=== PATIENT | female | born 1960 | race Caucasian/White ===

== ENCOUNTER → 2022-03-10 | Outpatient (CLI) | payer OTHER ==
[~2022-03-10] MED LIST: ALBU8.5H; AMLO1TAB24; AMOX500T2; ATOR1TAB21; B-1100TA2; BASA100I; BRIM0.2S13; CETI-24; DORZ2SOL4; DULA4.5P; FERR325T3 PO; FERR32TA; FURO40TA2; LATA0.0015; LIDOCAINE 1% MDV 20ML VIAL As Ordered ONE; METH25TAB; MIDO2.5T; ONDA4TAB6; POTA1TAB23; RHOP0.02; SEMGLEE; TIMO0.5S29; XALA0.007
[2022-03-10 09:01] LABS: BASO % 0.3 % (0.0-1.0); EOS # 0.3 10^3/uL (0.0-0.5); EOS % 3.5 % (0.0-3.0); HEMOGLOBIN 7.5 g/dl (12.0-15.5); LYMPH # 2.4 10^3/uL (1.5-5.0); MEAN CORPUSCULAR HEMOGLOBIN 25.3 pg (27.0-33.0); MEAN CORPUSCULAR HGB CONC 31.3 g/dl (32.0-36.5); MEAN CORPUSCULAR VOLUME 81.1 fl (80.0-96.0); MONO # 0.5 10^3/uL (0.0-0.8); MONO % 6.4 % (2.0-8.0); NEUTROPHILS # 4.5 10^3/uL (1.5-8.5); NEUTROPHILS % 58.7 % (36.0-66.0); PLATELET COUNT, AUTOMATED 340 10^3/uL (150-450); RED BLOOD COUNT 2.96 10^6/uL (4.00-5.40); WHITE BLOOD COUNT 7.6 10^3/uL (4.0-10.0)
[2022-03-10 09:15] VITALS: BP 171/78
== END ==
LOC: M IRPRO 08:11
PROVIDERS: ATTEND Internal Medicine Hematology & Oncology
DX: D64.9 Anemia, unspecified (principal)

== ENCOUNTER 2022-11-04 07:09 | Day surgery (SDC) | payer OTHER ==
[~2022-11-04] VITALS: Ht 162.6 cm; Wt 85.7 kg
[~2022-11-04 07:09] MED LIST changes: -ALBU8.5H; +ALBU8.5H INH; -AMLO1TAB24; +AMLO1TAB24 PO; -ATOR1TAB21; +ATOR1TAB21 PO; -B-1100TA2; +B-1100TA2 PO; -BASA100I; +BASA100I INJ; -BRIM0.2S13; +BRIM0.2S13 OS; -CETI-24; +CETI-24 PO; -DORZ2SOL4; +DORZ2SOL4 OS; -DULA4.5P; +DULA4.5P SC; +FOLI1TAB11 PO; -FURO40TA2; +FURO40TA2 PO; +INSU100I36 SC; +LATA0.0015 OU; -LIDOCAINE 1% MDV 20ML VIAL As Ordered ONE; -METH25TAB; +METH25TAB PO; -MIDO2.5T; +MIDO2.5T PO; +NS 1,000 ML IV ONE; +POTA-136 PO; -POTA1TAB23; +POTA1TAB23 PO; +TIMO0.5S20; -TIMO0.5S29; +XALA0.007 OU
[2022-11-04 07:40] VITALS: TEMP 97.5
[2022-11-04] MEDS ORDERED: INSULIN LISPRO (NovoLOG) PER UNIT SC PRN (07:55)
[2022-11-04] MEDS ORDERED: propofoL 200 MG/20 ML VIAL As Ordered ONE (08:20)
[2022-11-04] MEDS ORDERED: GLYCOPYRROLATE INJ 0.2 MG/ML 2 ML VIAL As Ordered ONE (08:20)
[2022-11-04] MEDS ORDERED: LIDOCAINE 2% 100MG/5ML SDV (FOR ANES.) As Ordered ONE (08:20)
[2022-11-04 09:15] VITALS: BP 141/76; O2SAT 96
== END 2022-11-04 09:25 | disposition home or self-care (01) ==
LOC: M OPP 07:09
PROVIDERS: ATTEND Internal Medicine Gastroenterology
DX: K64.4 Residual hemorrhoidal skin tags (principal); K64.8 Other hemorrhoids; K57.30 Diverticulosis of large intestine without perforation or abscess without bleeding; D50.9 Iron deficiency anemia, unspecified; K20.90 Esophagitis, unspecified without bleeding; Z79.02 Long term (current) use of antithrombotics/antiplatelets; Z79.4 Long term (current) use of insulin; Z79.51 Long term (current) use of inhaled steroids; Z79.52 Long term (current) use of systemic steroids; Z79.85 Long-term (current) use of injectable non-insulin antidiabetic drugs; Z79.83 Long term (current) use of bisphosphonates; Z79.890 Hormone replacement therapy; Z79.899 Other long term (current) drug therapy; Z88.1 Allergy status to other antibiotic agents
CPT/HCPCS: 43239; 45378; 88305; J1815

== ENCOUNTER 2023-06-19 15:13 | Outpatient (CLI) | payer OTHER ==
[~2023-06-19] VITALS: Ht 162.6 cm; Wt 89.0 kg
[~2023-06-19 15:13] MED LIST changes: -INSU100I36 SC; +INSU100I60 SC; -NS 1,000 ML IV ONE; +VITA500T40 PO
[2023-06-19 15:20] VITALS: BP 161/79; O2SAT 97
[2023-06-19] MEDS: FERRIC CARBOXYMALTOSE INJ 750 MG in NS 250 ML (>50kg) IV ONE (15:27)
[2023-06-19 16:20] VITALS: BP 142/68; O2SAT 98
== END 2023-06-19 16:20 ==
LOC: M INFU 15:13
PROVIDERS: ATTEND Internal Medicine Medical Oncology
DX: D50.9 Iron deficiency anemia, unspecified (principal); Z88.1 Allergy status to other antibiotic agents
CPT/HCPCS: 96365; J1439

== ENCOUNTER 2023-06-26 14:20 | Outpatient (CLI) | payer OTHER ==
[2023-06-26 14:29] VITALS: BP 144/67; O2SAT 98
[2023-06-26] MEDS: FERRIC CARBOXYMALTOSE INJ 750 MG in NS 250 ML (>50kg) IV ONE (14:33)
[2023-06-26 15:05] VITALS: BP 197/77; O2SAT 97
== END 2023-06-26 15:15 ==
LOC: M INFU 14:20
PROVIDERS: ATTEND Internal Medicine Medical Oncology
DX: D50.9 Iron deficiency anemia, unspecified (principal); Z88.1 Allergy status to other antibiotic agents
CPT/HCPCS: 96365; J1439